=== PATIENT | male | born 1940 | race African-American/Black ===

== ENCOUNTER 2018-05-08 01:05 | Emergency (ER) | payer MEDICARE, MEDICAID ==
[~2018-05-08] VITALS: Ht 167.6 cm; Wt 68.0 kg
[~2018-05-08 01:05] MED LIST: ASPI81TA47 PO; LISINOPRIL; OMEPRAZOLE; SIMV20TA2 PO; TAMS-11 PO
[2018-05-08] MEDS ORDERED: IBUPROFEN 600MG TABLET PO STA (01:52)
[2018-05-08 02:22] LABS: BASOPHILS % 0.7 % (0.0-2.0); CHLORIDE 107 mEq/L (98-107); EOSINOPHILS % 1.5 % (0.0-5.0); HEMATOCRIT. 44.8 % (42.0-52.0); HEMOGLOBIN. 15.3 g/dL (14.0-18.0); LYMPHOCYTES % 12.3 % (20.0-50.0); MEAN CORPUSCULAR VOLUME 87.8 fL (80.0-94.0); MEAN PLATELET VOLUME 7.1 fl (7.4-10.4); MONOCYTES % 11.2 % (2.0-8.0); NEUTROPHILS % 74.3 % (40.0-76.0); PLATELET 458 x1000/uL (130-400); RED CELL DISTRIBUTION WIDTH 12.9 % (11.6-14.6)
[2018-05-08 08:08] VITALS: BP 121/88
== END 2018-05-08 08:13 | disposition home or self-care (01) ==
LOC: ER 01:05
DX: L03.116 Cellulitis of left lower limb (principal); I11.0 Hypertensive heart disease with heart failure; I50.9 Heart failure, unspecified; J44.9 Chronic obstructive pulmonary disease, unspecified; Z86.73 Personal history of transient ischemic attack (TIA), and cerebral infarction without residual deficits; Z79.82 Long term (current) use of aspirin; Z79.899 Other long term (current) drug therapy
CPT/HCPCS: 36415; 84550; 99283

== ENCOUNTER 2018-09-20 17:04 | Inpatient (IN) | payer MEDICARE, MEDICAID ==
[~2018-09-20] VITALS: Ht 167.6 cm; Wt 68.5 kg
[2018-09-20] MEDS ORDERED: SODIUM CHLORIDE 0.9% 1000ML BAG (SEPSIS BOLUS) IV ONE (18:30)
[2018-09-20] MEDS ORDERED: VANCOMYCIN 1 G PREMIX 200 ML IV ONE (18:30)
[2018-09-20] MEDS ORDERED: PIPERACILLIN/TAZ 3.375G PREMIX 50 ML IV ONE (18:30)
[2018-09-20] MEDS ORDERED: ACETAMINOPHEN 650MG SUPP PR ONE (18:45)
[2018-09-20 19:45] LABS: CLARITY URINE TURBID (CLEAR); COLOR URINE YELLOW (YELLOW); KETONES URINE NEGATIVE (NEGATIVE); LEUKOCYTE ESTERASE URINE 3+ (NEGATIVE); NITRITE URINE POSITIVE (NEGATIVE); OCCULT BLOOD URINE 3+ (NEGATIVE); PROTEIN URINE 2+ (NEGATIVE); SPECIFIC GRAVITY URINE 1.021 (1.005-1.030); UROBILINOGEN URINE 0.2 E.U./dL (0.2-1.0)
[2018-09-20 20:24] LABS: HEMATOCRIT. 47.8 % (42.0-52.0); HEMOGLOBIN. 15.9 g/dL (14.0-18.0); MEAN CORPUSCULAR HEMOGLOBIN 29.8 pg (28.0-32.0); MEAN CORPUSCULAR VOLUME 89.8 fL (80.0-94.0); MEAN PLATELET VOLUME 7.8 fl (7.4-10.4); PLATELET 298 x1000/uL (130-400); RED BLOOD CELL COUNT 5.33 mill/uL (4.7-6.1); RED CELL DISTRIBUTION WIDTH 13.5 % (11.6-14.6)
[2018-09-20 20:31] LABS: INR 1.1; PARTIAL THROMBOPLASTIN TIME 30.6 sec (23.4-31.0); PROTHROMBIN TIME 11.5 sec (9.6-11.0)
[2018-09-20 20:34] LABS: CHLORIDE 110 mEq/L (98-107)
[2018-09-20 20:55] LABS: PLATELET ESTIMATE NORMAL
[2018-09-20] MEDS ORDERED: ONDANSETRON HCL 4MG/2ML INJ IV PRN (21:45)
[2018-09-20] MEDS ORDERED: HYDROCODONE/ACETAMINOPHEN 5/325MG TABLET PO PRN (21:45)
[2018-09-20] MEDS ORDERED: IPRATROPIUM/ALBUTEROL 0.5-3(2.5)MG/3ML NEB INH PRN (21:45)
[2018-09-20] MEDS ORDERED: CLONIDINE 0.1MG TABLET PO PRN (21:45)
[2018-09-20] MEDS: SODIUM CHLORIDE 0.45% 1,000 ML IV SCH (23:00)
[2018-09-20] MEDS ORDERED: DEXTROSE 50% WATER 50ML SYRINGE IV PRN (23:45)
[2018-09-21] VITALS (12 sets, daily range): BP systolic 120–159; BP diastolic 46–84
[2018-09-21] MEDS: PIPERACILLIN/TAZ 3.375G PREMIX 50 ML IV SCH ×4 (01:59→20:52)
[2018-09-21] MEDS ORDERED: VANCOMYCIN 1 G PREMIX 200 ML IV SCH (05:00)
[2018-09-21 07:12] LABS: HEMATOCRIT. 42.6 % (42.0-52.0); HEMOGLOBIN. 14.1 g/dL (14.0-18.0); MEAN CORPUSCULAR HEMOGLOBIN 29.4 pg (28.0-32.0); MEAN CORPUSCULAR VOLUME 89.1 fL (80.0-94.0); MEAN PLATELET VOLUME 8.5 fl (7.4-10.4); PLATELET 269 x1000/uL (130-400); RED BLOOD CELL COUNT 4.78 mill/uL (4.7-6.1); RED CELL DISTRIBUTION WIDTH 13.1 % (11.6-14.6)
[2018-09-21] MEDS: BLOOD SUGAR DIAGNOSTIC STRIP TEST SCH ×4 (07:30→20:57)
[2018-09-21] MEDS: INSULIN LISPRO 100 UNITS/ML SUBCUT SCH ×4 (08:00→20:58)
[2018-09-21 09:19] LABS: CHLORIDE 112 mEq/L (98-107)
[2018-09-21 09:38] LABS: LDL CHOLESTEROL 78 mg/dL (5-100)
[2018-09-21 09:39] LABS: HDL CHOLESTEROL 22 mg/dL (40-59)
[2018-09-21 09:50] LABS: PHOSPHORUS 2.7 mg/dL (2.5-4.9)
[2018-09-21 13:42] LABS: PLATELET ESTIMATE NORMAL
[2018-09-21] MEDS ORDERED: AMIKACIN 500MG in SODIUM CHLORIDE 0.9% 100ML IV NR (17:00)
[2018-09-21] MEDS ORDERED: VANCOMYCIN 750 MG PREMIX 150 ML IV SCH (18:00)
[2018-09-21 19:10] LABS: HEPATITIS B SURFACE ANTIGEN NEGATIVE
[2018-09-21 19:39] LABS: HEPATITIS A AB IGM NEGATIVE (NEGATIVE)
[2018-09-21] MEDS: TAMSULOSIN HCL 0.4MG SR CAPSULE PO SCH (20:32)
[2018-09-21] MEDS: ATORVASTATIN CALCIUM 20MG TABLET PO SCH (20:36)
[2018-09-22] VITALS (9 sets, daily range): BP systolic 125–156; BP diastolic 54–111
[2018-09-22] MEDS: SODIUM CHLORIDE 0.45% 1,000 ML IV SCH (00:24)
[2018-09-22] MEDS: PIPERACILLIN/TAZ 3.375G PREMIX 50 ML IV SCH ×3 (03:25→14:11)
[2018-09-22 07:38] LABS: HEMATOCRIT. 42.4 % (42.0-52.0); HEMOGLOBIN. 13.7 g/dL (14.0-18.0); MEAN CORPUSCULAR HEMOGLOBIN 29.2 pg (28.0-32.0); MEAN CORPUSCULAR VOLUME 90.3 fL (80.0-94.0); MEAN PLATELET VOLUME 8.5 fl (7.4-10.4); PLATELET 233 x1000/uL (130-400); RED BLOOD CELL COUNT 4.69 mill/uL (4.7-6.1); RED CELL DISTRIBUTION WIDTH 13.1 % (11.6-14.6)
[2018-09-22 07:53] LABS: CHLORIDE 113 mEq/L (98-107)
[2018-09-22] MEDS: BLOOD SUGAR DIAGNOSTIC STRIP TEST SCH ×4 (07:57→20:41)
[2018-09-22] MEDS: INSULIN LISPRO 100 UNITS/ML SUBCUT SCH ×4 (08:00→20:46)
[2018-09-22] MEDS: DEXT 5%/0.45% NACL 1000ML 1,000 ML IV SCH (09:06)
[2018-09-22] MEDS: ASPIRIN 81MG TABLET PO SCH (09:06)
[2018-09-22 11:46] LABS: *AMPHETAMINES SCREEN URINE NEGATIVE (NEGATIVE); *BARBITURATES SCREEN URINE NEGATIVE (NEGATIVE)
[2018-09-22 11:47] LABS: *BENZODIAZEPINES SCREEN URINE NEGATIVE (NEGATIVE); *COCAINE SCREEN URINE NEGATIVE (NEGATIVE); CANNABINOID URINE SCREEN NEGATIVE (NEGATIVE); METHADONE URINE SCREEN NEGATIVE (NEGATIVE); OPIATES URINE SCREEN NEGATIVE (NEGATIVE); PHENCYCLIDINE URINE SCREEN NEGATIVE (NEGATIVE)
[2018-09-22 12:24] LABS: ETHANOL BLOOD < 10 mg/dL
[2018-09-22 12:31] LABS: FOLIC ACID (FOLATE) SERUM 19.9 ng/mL (>5.38); T4 FREE 0.97 ng/dL (0.76-1.46)
[2018-09-22] MEDS: CEFAZOLIN 2,000 MG in DEXT 5% WATER 100 ML IV SCH (18:59)
[2018-09-22] MEDS ORDERED: CEFAZOLIN 2000MG in DEXTROSE 5% WATER 100ML IV SCH (20:00)
[2018-09-22 20:32] LABS: PLATELET ESTIMATE NORMAL
[2018-09-22] MEDS: ATORVASTATIN CALCIUM 20MG TABLET PO SCH (20:41)
[2018-09-22] MEDS: TAMSULOSIN HCL 0.4MG SR CAPSULE PO SCH (22:34)
[2018-09-23] VITALS: BP 130/57
[2018-09-23] MEDS: CEFAZOLIN 2,000 MG in DEXT 5% WATER 100 ML IV SCH ×3 (02:04→18:40)
[2018-09-23 04:00] VITALS: BP 119/60
[2018-09-23 04:13] LABS: HIV SCREEN 4G Non Reactive (Non Reactive)
[2018-09-23 07:17] LABS: HEMATOCRIT. 40.1 % (42.0-52.0); HEMOGLOBIN. 13.4 g/dL (14.0-18.0); MEAN CORPUSCULAR HEMOGLOBIN 29.7 pg (28.0-32.0); MEAN PLATELET VOLUME 8.5 fl (7.4-10.4); PLATELET 238 x1000/uL (130-400); RED BLOOD CELL COUNT 4.51 mill/uL (4.7-6.1); RED CELL DISTRIBUTION WIDTH 12.7 % (11.6-14.6)
[2018-09-23 07:26] LABS: CHLORIDE 107 mEq/L (98-107)
[2018-09-23] MEDS: BLOOD SUGAR DIAGNOSTIC STRIP TEST SCH ×4 (07:30→21:47)
[2018-09-23 08:00] VITALS: BP 125/81
[2018-09-23] MEDS: INSULIN LISPRO 100 UNITS/ML SUBCUT SCH ×4 (08:00→22:32)
[2018-09-23] MEDS: ASPIRIN 81MG TABLET PO SCH (08:51)
[2018-09-23 16:00] VITALS: BP 132/69
[2018-09-23 18:11] LABS: PLATELET ESTIMATE NORMAL
[2018-09-23] MEDS: DEXT 5%/0.45% NACL 1000ML 1,000 ML IV SCH (18:40)
[2018-09-23 20:20] VITALS: BP 145/59
[2018-09-23] MEDS: ATORVASTATIN CALCIUM 20MG TABLET PO SCH (21:42)
[2018-09-23] MEDS: TAMSULOSIN HCL 0.4MG SR CAPSULE PO SCH (21:47)
[2018-09-23 22:19] VITALS: BP 123/65
[2018-09-24] VITALS (8 sets, daily range): BP systolic 132–148; BP diastolic 56–76
[2018-09-24] MEDS: ACETAMINOPHEN 325MG TABLET PO PRN (02:05)
[2018-09-24] MEDS: CEFAZOLIN 2,000 MG in DEXT 5% WATER 100 ML IV SCH ×3 (02:05→17:45)
[2018-09-24 07:04] LABS: CHLORIDE 104 mEq/L (98-107); HEMATOCRIT. 39.1 % (42.0-52.0); HEMOGLOBIN. 13.1 g/dL (14.0-18.0); MEAN CORPUSCULAR HEMOGLOBIN 29.3 pg (28.0-32.0); MEAN CORPUSCULAR VOLUME 87.2 fL (80.0-94.0); MEAN PLATELET VOLUME 8.4 fl (7.4-10.4); PLATELET 278 x1000/uL (130-400); RED BLOOD CELL COUNT 4.48 mill/uL (4.7-6.1); RED CELL DISTRIBUTION WIDTH 12.6 % (11.6-14.6)
[2018-09-24] MEDS: BLOOD SUGAR DIAGNOSTIC STRIP TEST SCH ×4 (07:30→21:00)
[2018-09-24] MEDS: INSULIN LISPRO 100 UNITS/ML SUBCUT SCH ×4 (08:00→21:00)
[2018-09-24] MEDS: ASPIRIN 81MG TABLET PO SCH (08:48)
[2018-09-24 10:32] LABS: PLATELET ESTIMATE NORMAL
[2018-09-24] MEDS ORDERED: POTASSIUM CHLORIDE 20MEQ/PACKET PO NR (18:00)
[2018-09-24] MEDS ORDERED: POTASSIUM CHLORIDE INJ 40 MEQ in DEXT 5% WATER 250 ML IV NR (19:00)
[2018-09-24] MEDS: DEXT 5%/0.45% NACL 1000ML 1,000 ML IV SCH (20:16)
[2018-09-24] MEDS: ATORVASTATIN CALCIUM 20MG TABLET PO SCH (20:48)
[2018-09-24] MEDS: TAMSULOSIN HCL 0.4MG SR CAPSULE PO SCH (20:54)
[2018-09-25] VITALS (7 sets, daily range): BP systolic 100–146; BP diastolic 56–75
[2018-09-25] MEDS: CEFAZOLIN 2,000 MG in DEXT 5% WATER 100 ML IV SCH ×3 (02:03→17:38)
[2018-09-25] MEDS: BLOOD SUGAR DIAGNOSTIC STRIP TEST SCH ×3 (07:30→20:29)
[2018-09-25] MEDS: INSULIN LISPRO 100 UNITS/ML SUBCUT SCH ×3 (08:49→22:09)
[2018-09-25] MEDS: ASPIRIN 81MG TABLET PO SCH (08:49)
[2018-09-25 17:32] LABS: HEMATOCRIT. 38.9 % (42.0-52.0); HEMOGLOBIN. 13.2 g/dL (14.0-18.0); MEAN CORPUSCULAR HEMOGLOBIN 29.8 pg (28.0-32.0); MEAN CORPUSCULAR VOLUME 87.8 fL (80.0-94.0); MEAN PLATELET VOLUME 8.1 fl (7.4-10.4); PLATELET 373 x1000/uL (130-400); RED BLOOD CELL COUNT 4.43 mill/uL (4.7-6.1); RED CELL DISTRIBUTION WIDTH 12.9 % (11.6-14.6)
[2018-09-25 17:35] LABS: CHLORIDE 104 mEq/L (98-107)
[2018-09-25] MEDS: ATORVASTATIN CALCIUM 20MG TABLET PO SCH (22:06)
[2018-09-25] MEDS: TAMSULOSIN HCL 0.4MG SR CAPSULE PO SCH (22:07)
[2018-09-25 22:33] LABS: PLATELET ESTIMATE NORMAL
[2018-09-26] VITALS: BP 112/49
[2018-09-26] MEDS: CEFAZOLIN 2,000 MG in DEXT 5% WATER 100 ML IV SCH ×3 (03:31→17:55)
[2018-09-26 04:00] VITALS: BP 146/74
[2018-09-26] MEDS: INSULIN LISPRO 100 UNITS/ML SUBCUT SCH ×4 (07:08→21:00)
[2018-09-26] MEDS: BLOOD SUGAR DIAGNOSTIC STRIP TEST SCH ×4 (07:08→21:29)
[2018-09-26 08:00] VITALS: BP 107/46
[2018-09-26] MEDS: ASPIRIN 81MG TABLET PO SCH (09:18)
[2018-09-26] MEDS: DEXT 5%/0.45% NACL 1000ML 1,000 ML IV SCH (09:19)
[2018-09-26 12:11] VITALS: BP 105/58
[2018-09-26] MEDS: ACETAMINOPHEN 325MG TABLET PO PRN (12:16)
[2018-09-26 12:52] LABS: BASOPHILS % 0.5 % (0.0-2.0); EOSINOPHILS % 1.5 % (0.0-5.0); HEMATOCRIT. 37.3 % (42.0-52.0); HEMOGLOBIN. 12.6 g/dL (14.0-18.0); LYMPHOCYTES % 7.1 % (20.0-50.0); MEAN CORPUSCULAR HEMOGLOBIN 29.7 pg (28.0-32.0); MEAN CORPUSCULAR VOLUME 87.8 fL (80.0-94.0); MEAN PLATELET VOLUME 7.8 fl (7.4-10.4); MONOCYTES % 12.7 % (2.0-8.0); NEUTROPHILS % 78.2 % (40.0-76.0); PLATELET 424 x1000/uL (130-400); RED BLOOD CELL COUNT 4.25 mill/uL (4.7-6.1); RED CELL DISTRIBUTION WIDTH 12.6 % (11.6-14.6)
[2018-09-26 15:56] VITALS: BP 119/54
[2018-09-26 17:00] LABS: BASOPHILS % 0.4 % (0.0-2.0); EOSINOPHILS % 1.6 % (0.0-5.0); HEMATOCRIT. 37.2 % (42.0-52.0); HEMOGLOBIN. 12.6 g/dL (14.0-18.0); LYMPHOCYTES % 7.9 % (20.0-50.0); MEAN CORPUSCULAR HEMOGLOBIN 29.5 pg (28.0-32.0); MEAN PLATELET VOLUME 7.8 fl (7.4-10.4); MONOCYTES % 14.7 % (2.0-8.0); NEUTROPHILS % 75.4 % (40.0-76.0); PLATELET 463 x1000/uL (130-400); RED BLOOD CELL COUNT 4.28 mill/uL (4.7-6.1); RED CELL DISTRIBUTION WIDTH 12.7 % (11.6-14.6)
[2018-09-26 20:00] VITALS: BP 145/55
[2018-09-26] MEDS: ATORVASTATIN CALCIUM 20MG TABLET PO SCH (21:20)
[2018-09-26] MEDS: TAMSULOSIN HCL 0.4MG SR CAPSULE PO SCH (21:20)
[2018-09-27] VITALS: BP 128/53
[2018-09-27] MEDS: CEFAZOLIN 2,000 MG in DEXT 5% WATER 100 ML IV SCH ×3 (02:40→17:12)
[2018-09-27 04:00] VITALS: BP 143/45
[2018-09-27] MEDS: BLOOD SUGAR DIAGNOSTIC STRIP TEST SCH ×4 (05:50→20:27)
[2018-09-27] MEDS: INSULIN LISPRO 100 UNITS/ML SUBCUT SCH ×4 (05:50→20:27)
[2018-09-27 07:12] LABS: BASOPHILS % 0.4 % (0.0-2.0); EOSINOPHILS % 1.7 % (0.0-5.0); HEMOGLOBIN. 13.2 g/dL (14.0-18.0); LYMPHOCYTES % 7.5 % (20.0-50.0); MEAN CORPUSCULAR HEMOGLOBIN 29.6 pg (28.0-32.0); MEAN CORPUSCULAR VOLUME 87.5 fL (80.0-94.0); MEAN PLATELET VOLUME 7.7 fl (7.4-10.4); MONOCYTES % 12.5 % (2.0-8.0); NEUTROPHILS % 77.9 % (40.0-76.0); PLATELET 532 x1000/uL (130-400); RED BLOOD CELL COUNT 4.46 mill/uL (4.7-6.1); RED CELL DISTRIBUTION WIDTH 12.8 % (11.6-14.6)
[2018-09-27 07:49] LABS: CHLORIDE 104 mEq/L (98-107)
[2018-09-27] MEDS: DEXT 5%/0.45% NACL 1000ML 1,000 ML IV SCH (07:52)
[2018-09-27 08:00] VITALS: BP 118/52
[2018-09-27] MEDS: ASPIRIN 81MG TABLET PO SCH (09:15)
[2018-09-27] MEDS: DOCUSATE SODIUM 100MG CAPSULE PO PRN (09:15)
[2018-09-27 12:00] VITALS: BP 114/55
[2018-09-27 16:00] VITALS: BP 124/40
[2018-09-27 20:00] VITALS: BP 134/56
[2018-09-27] MEDS: ATORVASTATIN CALCIUM 20MG TABLET PO SCH (20:18)
[2018-09-27] MEDS: TAMSULOSIN HCL 0.4MG SR CAPSULE PO SCH (20:18)
[2018-09-28] VITALS: BP 104/80
[2018-09-28] MEDS: CEFAZOLIN 2,000 MG in DEXT 5% WATER 100 ML IV SCH ×3 (02:26→19:14)
[2018-09-28] MEDS: DEXT 5%/0.45% NACL 1000ML 1,000 ML IV SCH (03:45)
[2018-09-28 04:00] VITALS: BP 121/46
[2018-09-28] MEDS: INSULIN LISPRO 100 UNITS/ML SUBCUT SCH ×4 (06:26→20:43)
[2018-09-28] MEDS: BLOOD SUGAR DIAGNOSTIC STRIP TEST SCH ×4 (06:26→20:43)
[2018-09-28 07:46] LABS: BASOPHILS % 0.5 % (0.0-2.0); EOSINOPHILS % 2.2 % (0.0-5.0); HEMATOCRIT. 38.3 % (42.0-52.0); HEMOGLOBIN. 12.9 g/dL (14.0-18.0); LYMPHOCYTES % 10.2 % (20.0-50.0); MEAN CORPUSCULAR HEMOGLOBIN 29.5 pg (28.0-32.0); MEAN CORPUSCULAR VOLUME 87.5 fL (80.0-94.0); MEAN PLATELET VOLUME 7.4 fl (7.4-10.4); MONOCYTES % 11.6 % (2.0-8.0); NEUTROPHILS % 75.5 % (40.0-76.0); PLATELET 571 x1000/uL (130-400); RED BLOOD CELL COUNT 4.38 mill/uL (4.7-6.1); RED CELL DISTRIBUTION WIDTH 12.6 % (11.6-14.6)
[2018-09-28 08:00] VITALS: BP 137/61
[2018-09-28] MEDS: ASPIRIN 81MG TABLET PO SCH (10:36)
[2018-09-28 12:00] VITALS: BP 113/62
[2018-09-28 16:30] VITALS: BP 129/56
[2018-09-28 20:00] VITALS: BP 101/43
[2018-09-28] MEDS: ATORVASTATIN CALCIUM 20MG TABLET PO SCH (20:27)
[2018-09-28] MEDS: TAMSULOSIN HCL 0.4MG SR CAPSULE PO SCH (20:30)
[2018-09-29] VITALS (7 sets, daily range): BP systolic 100–143; BP diastolic 47–94
[2018-09-29] MEDS: DEXT 5%/0.45% NACL 1000ML 1,000 ML IV SCH (00:20)
[2018-09-29] MEDS: CEFAZOLIN 2,000 MG in DEXT 5% WATER 100 ML IV SCH ×3 (01:16→18:00)
[2018-09-29] MEDS: DOCUSATE SODIUM 100MG CAPSULE PO PRN (06:07)
[2018-09-29] MEDS: BLOOD SUGAR DIAGNOSTIC STRIP TEST SCH ×3 (06:08→16:45)
[2018-09-29] MEDS: INSULIN LISPRO 100 UNITS/ML SUBCUT SCH ×3 (07:15→17:15)
[2018-09-29] MEDS: ASPIRIN 81MG TABLET PO SCH (10:35)
== END 2018-09-29 19:50 | DRG 720 ==
LOC: ER 17:32 → 5EST 21:36 → EDBEDREQ 21:38 → EDBEDREQTM 21:38 → 5EST 09-25 06:17 → 5WST 09-25 12:28
PROVIDERS: ADMIT Internal Medicine; ATTEND Internal Medicine
PROC: 4A00X4Z Measurement of Central Nervous Electrical Activity, External Approach (ICD-10-PCS; principal; 2018-09-24)
DX: A41.51 Sepsis due to Escherichia coli [E. coli] (principal); G92 Toxic encephalopathy; E87.0 Hyperosmolality and hypernatremia; E72.20 Disorder of urea cycle metabolism, unspecified; I50.9 Heart failure, unspecified; E87.2 Acidosis; N39.0 Urinary tract infection, site not specified; I11.0 Hypertensive heart disease with heart failure; I45.10 Unspecified right bundle-branch block; J98.11 Atelectasis; R62.7 Adult failure to thrive; J44.9 Chronic obstructive pulmonary disease, unspecified; R74.0 Nonspecific elevation of levels of transaminase and lactic acid dehydrogenase [LDH]; L02.212 Cutaneous abscess of back [any part, except buttock and flank]; B96.20 Unspecified Escherichia coli [E. coli] as the cause of diseases classified elsewhere; R91.1 Solitary pulmonary nodule; Z86.73 Personal history of transient ischemic attack (TIA), and cerebral infarction without residual deficits; Z71.6 Tobacco abuse counseling
CPT/HCPCS: 36415; 70551; 71045; 71250; 76770; 80048; 80061; 80076; 80305; 80320; 81003; 82140; 82607; 82746; 82962; 83036; 83605; 83735; 83880; 84100; 84134; 84145; 84439; 84443; 84481; 84484; 86705; 86709; 86803; 87077; 87186; 87340; 87389; 92610; 93005; 93306; 96365; 97163; 97530; 99291; C1893; J0278; J0690; J1815; J2543; J3370; J3480; J7030; J7050; J7060; G0480